=== PATIENT | female | born 1965 | race African-American/Black ===

== ENCOUNTER 2018-01-02 10:39 | Emergency (ER) | payer BC ==
[~2018-01-02] VITALS: Ht 167.6 cm; Wt 95.3 kg
[~2018-01-02 10:39] MED LIST: CLONIDINE HCL0.2 M2 PO; COZAAR100 MG PO; HYDROCHLOROTHIA25 M1 PO; MUCINEX600 MG; OSELB75 PO; TESSALON PERLE100 MG; TUSSIONEX PENN473 ML PO; ZOCOR 20 MG TAB20 M1 PO
[2018-01-02] MEDS ORDERED: ZYRTEC10 M4 PO (10:57)
[2018-01-02] MEDS ORDERED: CRESTOR5 MG PO (10:57)
[2018-01-02 12:11] VITALS: BP 145/82
[2018-01-02] MEDS ORDERED: AUGMENTIN 875-1 EACH PO (12:21)
[2018-01-02] MEDS ORDERED: ANTIVERT25 MG PO (12:21)
[2018-01-02] MEDS ORDERED: ZOFRAN ODT4 MG PO (12:21)
== END 2018-01-02 12:56 | disposition home or self-care (01) ==
LOC: ER 10:39
DX: J01.90 Acute sinusitis, unspecified (principal); H81.392 Other peripheral vertigo, left ear; I10 Essential (primary) hypertension; E78.00 Pure hypercholesterolemia, unspecified; Z88.2 Allergy status to sulfonamides

== ENCOUNTER 2018-01-17 18:31 | Emergency (ER) | payer BC ==
[~2018-01-17] VITALS: Ht 167.6 cm; Wt 90.7 kg
--- NOTE | ~2018-01-17 | EKG ---
[place] [address] [employer] [facility] [place] [address] ELECTROCARDIOGRAM REPORT Name: MELISA LEPE Room #: [facility]#: [id number] Admission: 01/17/18 Attend Phys: Discharge: 01/17/18 Date of : 65 Report #: [id number] THIS REPORT FOR: //name// [facility] ED Test Date: 2018-01-17 Test Time: 19:06:02 Pat Name: MELISA LEPE Department: Room: Gender: F Claim Service Representative: RAFAEL : 1965 Requested By: Lo Iqbal Order Number: [id number] MD: Chad Ramirez Measurements Intervals [place] Rate: 79 P: 56 MO: 165 QRS: 4 QRSD: 79 T: 10 QT: 356 QTc: 409 Interpretive Statements Sinus rhythm Poor R wave progression Compared to ECG 11/03/2010 18:50:46 Low QRS voltage now present Sinus tachycardia no longer present Electronically Signed On 01-18-2018 8:12:57 CDT by Chad Ramirez [email or web address] <ELECTRONICALLY SIGNED> By: Chad Ramirez MD, [facility] 01/18/1812 05 05 Chad Ramirez MD, [facility] /EPI
[~2018-01-17 18:31] MED LIST changes: +ANTIVERT25 MG PO; +AUGMENTIN 875-1 EACH PO; +CRESTOR5 MG PO; +ZOFRAN ODT4 MG PO; +ZYRTEC10 M4 PO
[2018-01-17] MEDS ORDERED: MOBIC7.5 MG PO (20:17)
[2018-01-17] MEDS ORDERED: PREDNISONE 20 M20 MG PO (20:17)
[2018-01-17 20:49] VITALS: BP 129/63
== END 2018-01-17 20:51 | disposition home or self-care (01) ==
LOC: ER 18:31
DX: M70.922 Unspecified soft tissue disorder related to use, overuse and pressure, left upper arm (principal); M25.512 Pain in left shoulder; I10 Essential (primary) hypertension; E78.00 Pure hypercholesterolemia, unspecified; Z88.2 Allergy status to sulfonamides; E78.5 Hyperlipidemia, unspecified; Y93.89 Activity, other specified